=== PATIENT | female | born 1950 | race Caucasian/White ===

== ENCOUNTER 2018-02-14 20:17 | Inpatient (IN) | payer OTHER ==
[2018-02-14] MEDS ORDERED: NS 1,000 ML IV ONE ×2 (20:50→22:05)
--- NOTE | 2018-02-14 20:53 | EDPHY ---
H & P Time Seen by Provider: 02/14/18 20:45 HPI/ROS: CHIEF COMPLAINT: Nausea, vomiting, diarrhea HISTORY OF PRESENT ILLNESS: The patient is a 67-year-old female presents emergency department with multiple complaints. The patient states"I think I have the flu." She states for the past 4 days she has had nausea, vomiting and diarrhea. This is been nonbloody. She has had numerous episodes. She feels as though she can't keep anything down. She denies abdominal pain. She has no dysuria frequency. No fevers or chills. Patient also complains of bilateral sore throat. No cough. Mild nasal congestion. REVIEW OF SYSTEMS: 10 systems were reveiwed and are negative with the exception of the elements mentioned in the history of present illness. Past Medical/Surgical History: Includes hypertension hypothyroidism Past surgical history: Negative Social history: Patient smokes. She drinks alcohol. Smoking Status: Current every day smoker Physical Exam: Vitals noted. Heart rate 117. Blood pressure is 88/66 GENERAL: No acute distress, alert. HEENT: Eyes normal to inspection, normal pharynx, no signs of dehydration. NECK: Normal, supple. RESPIRATORY: Clear to auscultation bilaterally, no rales, rhonchi or wheezing. CVS: Regular rate and rhythm, no rubs, murmurs, or gallops. ABDOMEN: Soft, nontender, nondistended, no organomegaly. Benign BACK: Normal to inspection, no CVA tenderness. SKIN: Normal color, no rash, warm, dry. No pallor. EXTREMITIES: No pedal edema, no calf tenderness, no Homans sign or cords, no joint swelling. NEURO/PSYCH: Alert and oriented, normal mood and affect, normal motor sensory exam. No obvious cranial nerve deficit. Constitutional: Initial Vital Signs Temperature (C) 37.2 C 02/14/18 20:23 Heart Rate 117 H 02/14/18 20:23 Respiratory Rate 16 02/14/18 20:23 Blood Pressure 86/66 L 02/14/18 20:23 O2 Sat (%) 95 02/14/18 20:23 O2 Delivery Mode Room Air Allergies/Adverse Reactions: No Known Allergies Allergy (Unverified 02/14/18 20:23) Home Medications: Medication Instructions Recorded Synthroid 02/14/18 Medical Decision Making ED Course/Re-evaluation: In the emergency department I discussed possible etiologies with the patient. I answered all her questions. Patient was given normal saline 1 L IV for hydration. She was given Zofran 4 mg IV in route by EMS. Patient had laboratory studies ordered. The patient's surgery was 124. Carbon dioxide is low at 18. Anion gap is elevated 25. Creatinine is elevated 1.3. LFTs were unremarkable. Lipase 162. White count is elevated at 10 Patient requested additional IV fluids. Normal saline was given for hydration. Patient was given a p.o. Challenge. Patient was admitted to Dr. Cote Differential Diagnosis: My differential includes but is not limited to SBO, perforation, electrolyte abnormality, sugar abnormality, pharyngitis, dehydration, bacteremia, sepsis - Data Points Laboratory Results: Laboratory Results 02/14/18 21:00 02/14/18 21:00 02/14/18 02/14/18 02/14/18 21:15 21:00 21:00 WBC 10.46 10^3/uL H 10^3/uL (3.80-9.50) RBC 3.49 10^6/uL L 10^6/uL (4.18-5.33) Hgb 12.9 g/dL g/dL (12.6-16.3) Hct 36.0 % L % (38.0-47.0) MCV 103.2 fL H fL (81.5-99.8) MCH 37.0 pg H pg (27.9-34.1) MCHC 35.8 g/dL g/dL (32.4-36.7) RDW 12.0 % % (11.5-15.2) Plt Count 239 10^3/uL 10^3/uL (150-400) MPV 8.5 fL L fL (8.7-11.7) Neut % (Auto) 84.2 % H % (39.3-74.2) Lymph % (Auto) 6.1 % L % (15.0-45.0) [place] % (Auto) 9.1 % % (4.5-13.0) Eos % (Auto) 0.0 % L % (0.6-7.6) Baso % (Auto) 0.2 % L % (0.3-1.7) Nucleat RBC Rel Count 0.0 % % (0.0-0.2) Absolute Neuts (auto) 8.81 10^3/uL H 10^3/uL (1.70-6.50) Absolute Lymphs (auto) 0.64 10^3/uL L 10^3/uL (1.00-3.00) Absolute Monos (auto) 0.95 10^3/uL H 10^3/uL (0.30-0.80) Absolute Eos (auto) 0.00 10^3/uL L 10^3/uL (0.03-0.40) Absolute Basos (auto) 0.02 10^3/uL 10^3/uL (0.02-0.10) Absolute Nucleated RBC 0.00 10^3/uL 10^3/uL (0-0.01) Immature Gran % 0.4 % % (0.0-1.1) Immature Gran # 0.04 10^3/uL 10^3/uL (0.00-0.10) Sodium 124 mEq/L L mEq/L (135-145) Potassium 4.2 mEq/L mEq/L (3.3-5.0) Chloride 81 mEq/L L mEq/L (97-110) Carbon Dioxide 18 mEq/l L mEq/l (22-31) Anion Gap 25 mEq/L H mEq/L (6-14) BUN 38 mg/dL H mg/dL (7-23) Creatinine 1.3 mg/dL H mg/dL (0.6-1.0) Estimated GFR 41 Glucose 96 mg/dL mg/dL (70-100) Calcium 8.6 mg/dL mg/dL (8.5-10.4) Total Bilirubin 0.7 mg/dL mg/dL (0.1-1.4) Conjugated Bilirubin 0.3 mg/dL mg/dL (0.0-0.5) Unconjugated Bilirubin 0.4 mg/dL mg/dL (0.0-1.1) AST 46 IU/L IU/L (14-46) ALT 42 IU/L IU/L (9-52) Alkaline Phosphatase 43 IU/L IU/L (38-126) Total Protein 6.1 g/dL L g/dL (6.3-8.2) Albumin 3.7 g/dL g/dL (3.5-5.0) Lipase 162 IU/L IU/L (23-300) Group A Strep Screen NEGATIVE (NEGATIVE) Medications Given: Discontinued Medications Sodium Chloride (Ns) 1,000 mls @ 0 mls/hr IV EDNOW ONE; Wide Open PRN Reason: Protocol Stop: 02/14/18 20:51 Last Admin: 02/14/18 20:56 Dose: 1,000 mls Sodium Chloride (Ns) 1,000 mls @ 0 mls/hr IV EDNOW ONE; Wide Open PRN Reason: Protocol Stop: 02/14/18 22:06 Last Admin: 02/14/18 22:06 Dose: 1,000 mls Ondansetron HCl (Zofran) 4 mg IVP EDNOW ONE Stop: 02/14/18 21:16 Last Admin: 02/14/18 21:15 Dose: 4 mg Departure - Departure Disposition: [facility] Acute Clinical Impression: Hyponatremia Vomiting Qualifiers: Vomiting type: unspecified Vomiting Intractability: unspecified Nausea presence : with nausea Qualified Code(s): R11.2 - Nausea with vomiting, unspecified Condition: Good
[2018-02-14] MEDS ORDERED: ONDANSETRON 4 MG/2 ML VIAL ONE (21:12)
[2018-02-14] MEDS ORDERED: ONDANSETRON 4 MG/2 ML VIAL IVP ONE (21:15)
[2018-02-14 21:25] LABS: PLATELET COUNT 239 10^3/uL (150-400)
[2018-02-14] MEDS ORDERED: ONDANSETRON 4 MG/2 ML VIAL IVP PRN (22:41)
[2018-02-14] MEDS ORDERED: ACETAMINOPHEN 325 MG TAB PO PRN (22:41)
[2018-02-14] MEDS ORDERED: LORazepam 2 MG/ML INJ IVP PRN (22:41)
[2018-02-14] MEDS ORDERED: ONDANSETRON DISINTEGRATING 4 MG TAB PO PRN (22:41)
[2018-02-14] MEDS ORDERED: PROMETHAZINE HCL 25 MG/ML INJ IVP PRN (22:41)
--- NOTE | 2018-02-14 23:37 | PDGENHP ---
History and Physical - Chief Complaint nausea,vomiting, diarrhea. - History of Present Illness Source - Patient provides history and appears reliable. EMR reviewed and case discussed with ED provider. HPI - Pleasant 67F year old female with past medical history significant for HTN , hypothyroidism who presents emergency department today with complaints of 4 days of nausea vomiting and diarrhea. Patient denies any known sick contacts. She also endorses nonproductive cough, rhinorrhea and significantly sore throat. Patient denies any subjective fevers and chills. She denies any hematemesis or bloody diarrhea. Patient denies any abdominal pain or distention. She has not been able to keep anything down. She does endorse some dysuria and frequency. She reports months ago she had evaluation for frequency and it was felt to be attributed to her diuretic. She currently is complaining of discomfort with urination but unable to the further describe her pain. Patient reports that on route via EMS her blood pressure systolic was 120s. She is apprised to hear that her blood pressure had dropped down into the 80s. Patient received 2 L of IV fluid on and had not had any need to avoid until just now. History Information - Allergies/Home Medication List Allergies/Adverse Reactions: No Known Allergies Allergy (Unverified 02/14/18 20:23) Home Medications: Levothyroxine [Synthroid 125 mcg (*)] 125 mcg PO DAILY06 02/14/18 [Last Taken Unknown] Lisinopril/Hydrochlorothiazide [Zestoretic 20-25 mg Tablet] 1 each PO DAILY [Last Taken Unknown] I have personally reviewed and updated: family history, medical history, social history, surgical history - Past Medical History hypertension Additional medical history: hypothyroidism - Surgical History Reports: no pertinent surgical hx Additional surgical history: patient denies - Family History Additional family history: neg for IBD - Social History Smoking Status: Current every day smoker Tobacco Use: Cigarettes (1/2 ppd) Alcohol Use: Other (2-3 glasses of wine early every evening after work.) Drug Use: None Additional social history: . Lives with . COR - FULL. Review of Systems Review of Systems: ROS: 10pt was reviewed & negative except for what was stated in HPI & below Constitutional: Reports: malaise. Denies: chills, fever EENMT: Reports: nose congestion, sore throat. Denies: blurred vision Cardiac: Reports: no symptoms Respiratory: Reports: cough. Denies: shortness of breath Gastrointestinal: Reports: vomitting, diarrhea, nausea. Denies: black stools, rectal bleeding, abdominal pain, abdominal distention Genitourinary: Reports: dysuria, frequency, urgency. Denies: hematuria Muscolosketal: Reports: no symptoms Skin: Reports: no symptoms Neurological: Reports: no symptoms Hematologic/Lymphatic: Reports: no symptoms Physical Exam Physical Exam: Selected Entries 02/14/18 20:23 Blood Pressure Automatic Method Heart Rate 117 H Respiratory 16 Rate O2 Sat (%) 95 Temperature (C) 37.2 C Blood Pressure 86/66 L Mean Arterial 72 Pressure (MAP) O2 Delivery Room Air Mode Temperature Oral Source Temp Pulse Resp BP Pulse Ox 37.2 C 93 16 111/63 92 02/14/18 20:23 02/14/18 22:00 02/14/18 22:00 02/14/18 22:00 02/14/18 22:00 Constitutional: no apparent distress, chronically ill appearing, other (NAD. Pleasant adult female is lying quietly in the gurney. She appears fatigued and acutely ill but nontoxic.) Eyes: PERRL, anicteric sclera, EOMI, No scleral injection Ears, Nose, Mouth, Throat: dry mucous membranes, other (Patient with some mild oropharyngeal erythema but there is no exudates.) Cardiovascular: regular rate and rhythym, no murmur, rub, or gallop, No edema Peripheral Pulses: 1+: dorsalis-pedis (R), dorsalis-pedis (L) Respiratory: no respiratory distress, no rales or rhonchi, clear to auscultation , other (Occasional cough), No inspiratory crackles Gastrointestinal: normoactive bowel sounds, soft, non-tender abdomen, No distension Genitourinary: no bladder tenderness, No castro in urethra Skin: warm, normal color, no rashes or abrasions Musculoskeletal: other (Patient sits up independently. Moves all extremities.) , No generalized weakness Neurologic: AAOx3, sensation intact bilaterally, other (Grossly nonfocal exam.) , No facial droop Psychiatric: interacting appropriately, not anxious, not encephalopathic, thought process linear, No poor insight, No poor judgement, No poor memory Lab Data & Imaging Review 02/14/18 21:00 02/14/18 21:00 WBC 10.46 10^3/uL (3.80-9.50) H 02/14/18 21:00 RBC 3.49 10^6/uL (4.18-5.33) L 02/14/18 21:00 Hgb 12.9 g/dL (12.6-16.3) 02/14/18 21:00 Hct 36.0 % (38.0-47.0) L 02/14/18 21:00 MCV 103.2 fL (81.5-99.8) H 02/14/18 21:00 MCH 37.0 pg (27.9-34.1) H 02/14/18 21:00 MCHC 35.8 g/dL (32.4-36.7) 02/14/18 21:00 RDW 12.0 % (11.5-15.2) 02/14/18 21:00 Plt Count 239 10^3/uL (150-400) 02/14/18 21:00 MPV 8.5 fL (8.7-11.7) L 02/14/18 21:00 Neut % (Auto) 84.2 % (39.3-74.2) H 02/14/18 21:00 Lymph % (Auto) 6.1 % (15.0-45.0) L 02/14/18 21:00 [place] % (Auto) 9.1 % (4.5-13.0) 02/14/18 21:00 Eos % (Auto) 0.0 % (0.6-7.6) L 02/14/18 21:00 Baso % (Auto) 0.2 % (0.3-1.7) L 02/14/18 21:00 Nucleat RBC Rel Count 0.0 % (0.0-0.2) 02/14/18 21:00 Absolute Neuts (auto) 8.81 10^3/uL (1.70-6.50) H 02/14/18 21:00 Absolute Lymphs (auto) 0.64 10^3/uL (1.00-3.00) L 02/14/18 21:00 Absolute Monos (auto) 0.95 10^3/uL (0.30-0.80) H 02/14/18 21:00 Absolute Eos (auto) 0.00 10^3/uL (0.03-0.40) L 02/14/18 21:00 Absolute Basos (auto) 0.02 10^3/uL (0.02-0.10) 02/14/18 21:00 Absolute Nucleated RBC 0.00 10^3/uL (0-0.01) 02/14/18 21:00 Immature Gran % 0.4 % (0.0-1.1) 02/14/18 21:00 Immature Gran # 0.04 10^3/uL (0.00-0.10) 02/14/18 21:00 Sodium 124 mEq/L (135-145) L 02/14/18 21:00 Potassium 4.2 mEq/L (3.3-5.0) 02/14/18 21:00 Chloride 81 mEq/L (97-110) L 02/14/18 21:00 Carbon Dioxide 18 mEq/l (22-31) L 02/14/18 21:00 Anion Gap 25 mEq/L (6-14) H 02/14/18 21:00 BUN 38 mg/dL (7-23) H 02/14/18 21:00 Creatinine 1.3 mg/dL (0.6-1.0) H 02/14/18 21:00 Estimated GFR 41 02/14/18 21:00 Glucose 96 mg/dL (70-100) 02/14/18 21:00 Calcium 8.6 mg/dL (8.5-10.4) 02/14/18 21:00 Total Bilirubin 0.7 mg/dL (0.1-1.4) 02/14/18 21:00 Conjugated Bilirubin 0.3 mg/dL (0.0-0.5) 02/14/18 21:00 Unconjugated Bilirubin 0.4 mg/dL (0.0-1.1) 02/14/18 21:00 AST 46 IU/L (14-46) 02/14/18 21:00 ALT 42 IU/L (9-52) 02/14/18 21:00 Alkaline Phosphatase 43 IU/L (38-126) 02/14/18 21:00 Total Protein 6.1 g/dL (6.3-8.2) L 02/14/18 21:00 Albumin 3.7 g/dL (3.5-5.0) 02/14/18 21:00 Lipase 162 IU/L (23-300) 02/14/18 21:00 Group A Strep Screen NEGATIVE (NEGATIVE) 02/14/18 21:15 Assessment & Plan Assessment: Pleasant 67-year-old female with history HTN, hypothyroidism presents to the ED today via EMS with complaints of 4 day history of intractable nausea vomiting diarrhea. #Nausea vomiting and diarrhea - likely secondary to gastroenteritis or other viral syndrome. Patient nausea vomiting is currently improved after receiving antiemetics. #Viral syndrome - GI PCR and respiratory panel. #Hyponatremia (Acute) - likely secondary to hypovolemia in setting of significant dehydration. Continue with IV fluids and repeat a BMP in the morning. #Hypotension - secondary to hypovolemia. IV fluids as above. #AK I - pre renal in nature in setting of hypovolemia and hypotension. Repeat BMP in the morning with fluids as noted above. #Metabolic acidosis - likely starvation ketosis. UA is pending as patient has not been able to void until after 2 L of IV fluids was received. Repeat BMP in the morning. #Dehydration - IV fluid replacement as noted above. # dysuria - checking a UA. Chronic medical problems #Benign essential hypertension - holding patient's lisinopril and HCTZ in setting of dehydration, hypotension and acute kidney injury. #Hypothyroidism - continue patient's levothyroxine in the morning if she is able to tolerate p.o.. #Daily alcohol intake - patient reports her last intake was 4 days ago. She has no tremor or signs of withdrawal. #Tobacco dependence - patient is not start smoked in the last 4 days. I encouraged her to continue cessation. Nicotine patch p.r.n. As it was offered and patient declines at this time. FEN - IVF to continue. s/p 2 liters normal saline in the ED. Electrolytes week monitored replaced if needed. Start with clears and advance diet as tolerated. PPX-SCDs. Lovenox if patient should stay additional day. Cor status-full Disposition-patient admitted observation status on the medical floor. Anticipate less than 2 midnight stay once patient's symptoms are stabilized and she is able to tolerate oral intake on a regular basis anticipate discharge home.
[2018-02-15] MEDS ORDERED: NICOTINE 14 MG/24 HR PATCH TD PRN (00:02)
[2018-02-15] MEDS: NS 1,000 ML IV SCH ×2 (00:11→14:44)
[2018-02-15 05:12] LABS: PLATELET COUNT 170 10^3/uL (150-400)
[2018-02-15] MEDS: ENOXAPARIN 40 MG/0.4 ML SYR SC SCH (08:23)
[2018-02-15] MEDS: LEVOTHYROXINE 125 MCG TAB PO SCH (09:49)
--- NOTE | 2018-02-15 12:59 | ASMTCMCOM ---
CM Note CM Note Notes: Case Management Chart Review for Discharge Support: Patient is 67 year old female, admitted under observation after experiencing 4 days of nausea/vomiting/diarrhea. Patient lives in [place] with Gonzalo, cell [phone]. CM met with patient, CAGE completed. Patient does not have any preferences for agencies/facilities. Patient states support at home is and she will carry on as usual when discharged. Date TBD. CM to follow. Plan: TBD, currently obs. Date Signed: 02/15/2018 12:59 PM Electronically Signed By:Geraldine Alvarez
--- NOTE | 2018-02-15 13:02 | ASMTCAGE ---
CAGE Do you feel you ought to Answers: No cut down on your drinking or drug use? Do people annoy you by Answers: No criticizing your drinking or drug use? Do you feel guilty about Answers: No your drinking or drug use? Do you drink or use drugs Answers: No first thing in the morning ([facility] Asst)? Date Signed: 02/15/2018 01:02 PM Electronically Signed By:Geraldine Alvarez
--- NOTE | 2018-02-15 20:48 | HOSPPROG ---
Hospitalist Progress Note Assessment/Plan: The patient is a 67-year-old female with PMH hypothyroidism and hypertension who was admitted for acute gastroenteritis resulting in hypovolemic hyponatremia. ASSESSMENT/PLAN: Acute gastroenteritis, improved Intractable nausea and vomiting, resolved Diarrhea, persistent Hyponatremia, hypovolemic- improved Generalized weakness, 2/2 above Gait instability, 2/2 above Hypothyroid Hypertension-normotensive now -hypertension medication held since patient is normotensive and has been hypovolemic. -IV fluids, antiemetics -Sodium improving. Recheck labs in a.m. -activity as tolerated. -changed from observation to inpatient status since patient continued to be weak and unstable with walking. She needs more time to recover. VTE prophylaxis: Lovenox Code Status: Full code Status: Inpatient for greater than 2 midnight stay. Disposition: [facility] with discharge anticipated tomorrow This patient is new to me. Reviewed patient's chart/records for this visit. ____ SUBJECTIVE: Today patient continues to feel weak, very fatigued, and unstable with walking. OBJECTIVE: Physical Exam: General: The patient is a female who is alert and in no acute distress. HEENT: normocephalic, extraocular movements intact, conjunctivae clear. Mucous membranes moist. Neck: trachea midline, no visible masses. Abd: soft and nondistended. + moderate diffuse tenderness without rebound tenderness or guarding. Musculoskeletal: Normal muscle tone/bulk. Neuro: cranial nerves II XII grossly intact. Intact gross motor and sensory function. Psych: Appropriate mood and appropriate affect. Skin: No pallor. No petechiae. Heme/lymph: No peripheral edema at bilateral lower extremities. Labs/Imaging/Other Tests: Personally reviewed/interpreted. Microbiology-negative Respiratory pathogen panel. Stool panel pending Objective: Vital Signs Temp Pulse Resp BP Pulse Ox 37.1 C 82 16 127/82 H 96 02/15/18 19:23 02/15/18 19:23 02/15/18 19:23 02/15/18 19:23 02/15/18 19:23 Microbiology 02/15/18 14:40 Gastrointestinal Tract Panel (PCR) - Final Stool No Organism Detected 02/14/18 23:59 Respiratory Panel (PCR) - Final Nasal, Sinus - Swab No Organism Detected Laboratory Results 02/15/18 04:44 02/15/18 04:44 02/14/18 02/15/18 02/16/18 05:59 05:59 05:59 Intake Total 2100 1560 Output Total 1 200 Balance 2099 1360 - Time Spent With Patient Time Spent with Patient: greater than 25 minutes Time Spent with Patient: Greater than 25 minutes spent on this patients care, greater than 50% of time spent counseling, educating, and coordinating care regarding the above mentioned plan. ICD10 Worksheet Patient Problems: Problems Problem Status Onset Hyponatremia Acute Vomiting Acute
[2018-02-16 05:26] LABS: PLATELET COUNT 139 10^3/uL (150-400)
[2018-02-16] MEDS: LEVOTHYROXINE 125 MCG TAB PO SCH (06:07)
[2018-02-16] MEDS: ENOXAPARIN 40 MG/0.4 ML SYR SC SCH (12:11)
[2018-02-16] MEDS: POTASSIUM CL 20 MEQ TAB PO ONE ×2 (12:47→14:39)
[2018-02-16] MEDS ORDERED: POTASSIUM CL 20 MEQ/15 ML UDCUP PO ONE (14:00)
--- NOTE | 2018-02-16 15:39 | PDMN ---
Medical Necessity [place] [facility] [place] Gastroenteritis: 67 yo w/ dehydration, metabolic acidosis, SCOTT, Hypotension and acute hyponatremia likely due to n/v, diarrhea viral syndrome. Initially OBS but pt requires additional MN for cont diarrhea, hyponanatremia, weakness, gait instability, need to cont IVF and lab checks, noted H/H dropped from 12.9/36 to 8.8/25.5. Hx HTN, Hypothyroidism. Change to IP status 02/16/18 @1520 per MD order.
[2018-02-16] MEDS ORDERED: MAG HYDROX/AL HYDROX/SIMETH 30 ML UDCUP PO PRN (16:27)
--- NOTE | 2018-02-16 19:50 | HOSPPROG ---
Hospitalist Progress Note Assessment/Plan: The patient is a 67-year-old female with PMH hypothyroidism and hypertension who was admitted for acute gastroenteritis resulting in hypovolemic hyponatremia. ASSESSMENT/PLAN: Acute gastroenteritis, improved Intractable nausea and vomiting, resolved Diarrhea, resolved Hyponatremia, hypovolemic- improved Mild pulm edema, vol OL Possible URI, likely viral -- EAC pruritus, sore throat Suspected COPD Tobacco dependence Generalized weakness, 2/2 above - improved Gait instability, 2/2 above - improved Hypothyroid Hypertension-normotensive now Anemia - likely 2/2 part ABL and part hemodilution Hematochezia - resolved (single episode) -hypertension medication held since patient is normotensive and has been hypovolemic. -DC IVF. 1 dose Lasix in AM. -Monitor CBC. If Hgb < 7, transfuse 1 uPRBC. Will need workup for bleeding, in this case. -Sodium improving. Recheck labs in a.m. -activity as tolerated. -changed from observation to inpatient status since patient continued to be weak and Hgb dropped. She needs more time to recover. VTE prophylaxis: SCDs. Code Status: Full code Status: Inpatient for greater than 2 midnight stay. Disposition: [facility] [place] with discharge anticipated tomorrow if pt is doing well. ____ SUBJECTIVE: Today patient feels better, but has had increased O2 requirement. OBJECTIVE: Physical Exam: General: The patient is a female who is alert and in no acute distress. Appears better today. HEENT: normocephalic, extraocular movements intact, conjunctivae clear. Mucous membranes moist. Neck: trachea midline, no visible masses. Abd: soft and nondistended. Musculoskeletal: Normal muscle tone/bulk. Neuro: cranial nerves II XII grossly intact. Intact gross motor and sensory function. Psych: Appropriate mood and appropriate affect. Skin: No pallor. No petechiae. Heme/lymph: No peripheral edema at bilateral lower extremities. Labs/Imaging/Other Tests: Personally reviewed/interpreted. Microbiology-negative Respiratory pathogen panel. Stool panel negative. CXR - personally interpreted - mild pulm edema vs early infiltrate. Objective: Vital Signs Temp Pulse Resp BP Pulse Ox 36.9 C 70 16 120/72 97 02/16/18 19:20 02/16/18 19:20 02/16/18 19:20 02/16/18 19:20 02/16/18 19:20 02/15/18 02/16/18 02/17/18 05:59 05:59 05:59 Intake Total 1025 Output Total 650 Balance 375 ICD10 Worksheet Patient Problems: Problems Problem Status Onset Hyponatremia Acute Vomiting Acute
[2018-02-16] MEDS: MAGNESIUM OXIDE 400 MG TAB PO SCH (21:03)
[2018-02-17 05:12] LABS: PLATELET COUNT 150 10^3/uL (150-400)
[2018-02-17] MEDS: LEVOTHYROXINE 125 MCG TAB PO SCH (05:54)
[2018-02-17] MEDS ORDERED: FUROSEMIDE 20 MG/2 ML VIAL IVP SCH (09:00)
[2018-02-17] MEDS: MAGNESIUM OXIDE 400 MG TAB PO SCH (09:07)
[2018-02-17 12:14] VITALS: BP 112/70
--- NOTE | 2018-02-17 15:07 | ASMTLACE ---
LACE Length of stay for Answers: 3 days current admission Acuity / Level of Answers: Yes Care: Did the patient have an inpatient admission? Comorbidities - select Answers: Other Notes: HTN; Hypothyroid all that apply # of Emergency department Answers: 1-2 visits in the last 6 months Score: 8 Date Signed: 02/17/2018 03:06 PM Electronically Signed By:BESSY Mai
--- NOTE | 2018-02-17 15:09 | ASMTCMCOM ---
CM Note CM Note Notes: Pts case discussed w/ HUGH Astudillo. Pt is being discharged today. Pt does not have any d/c needs at this time. CM available for changes. Plan: Independent Date Signed: 02/17/2018 03:09 PM Electronically Signed By:BESSY Mai
== END 2018-02-17 12:48 | disposition home or self-care (01) | DRG 392 ==
LOC: EDUNIT# → F3E 02-15 00:04 → OBSVTOIN 02-16 15:20
PROVIDERS: ADMIT Family Medicine; ATTEND Internal Medicine
DX: A08.4 Viral intestinal infection, unspecified (principal); E87.1 Hypo-osmolality and hyponatremia; E86.0 Dehydration; E87.2 Acidosis; I10 Essential (primary) hypertension; E03.9 Hypothyroidism, unspecified; F17.210 Nicotine dependence, cigarettes, uncomplicated
CPT/HCPCS: 96374; G0378; J1650; J1940; J2405